=== PATIENT | female | born 1980 | race Caucasian/White ===

== ENCOUNTER 2022-09-30 21:51 | Emergency (ER) | payer MEDICAID ==
[~2022-09-30] VITALS: Ht 162.6 cm; Wt 54.4 kg
[2022-09-30] MEDS ORDERED: ONDANSETRON HCL 4 MG TABLET PO ONE (22:00)
[2022-09-30] MEDS ORDERED: HYDROMORPHONE 1 MG/1 ML DISP.SYRIN IM ONE ×2 (22:00→23:30)
[2022-09-30] MEDS ORDERED: KETOROLAC TROMETHAMINE 60 MG INJ IM ONE ×2 (22:00→22:19)
[2022-09-30] MEDS ORDERED: ONDANSETRON 4 MG/2 ML VIAL ONE (22:05)
[2022-09-30] MEDS ORDERED: HYDROMORPHONE 2 MG/1 ML DISP.SYRIN ONE ×2 (22:05→23:40)
[2022-09-30] MEDS ORDERED: HYDROMORPHONE 1 MG/1 ML DISP.SYRIN ONE (22:05)
[2022-10-01] MEDS ORDERED: HYDR-3980 PO (00:03)
--- NOTE | 2022-10-01 00:19 | NUR ---
Patient discharged to home in stable condition. Written and verbal after care instructions given. Patient verbalizes understanding of instructions. Stressed follow up or return to ER for worsening s/s.
[2022-10-01 00:23] VITALS: BP 127/80
== END 2022-10-01 00:23 | disposition home or self-care (01) ==
LOC: ER 21:51
DX: G89.29 Other chronic pain (principal); M54.50 Low back pain, unspecified
CPT/HCPCS: 99284; 96374; 96375; 72100; 96372; J1885; J2405; J1170 ×3; A4663